=== PATIENT | female | born 1935 | race Caucasian/White ===

== ENCOUNTER 2016-09-17 06:41 | Emergency (ER) | payer MEDICARE, OTHER ==
--- NOTE | 2016-09-17 09:04 | RAD ---
HISTORY: Left flank pain COMPARISONS: None VIEWS: Frontal views of the abdomen. FINDINGS: BOWEL: There is a nonspecific bowel gas pattern. There is a distended loop of large bowel within the lower abdomen. CALCULI: There are calcified fibroids BONES AND SOFT TISSUES: Degenerative changes are noted OTHER FINDINGS: The lung bases are clear. There is no subphrenic gas. IMPRESSION: DISTENDED LOOP OF LARGE BOWEL FROM THE LOWER ABDOMEN. THIS MAY REPRESENT A CECAL BASCULE, THOUGH VOLVULUS IS WITHIN THE DIFFERENTIAL. RECOMMEND CONSIDERATION OF CORRELATION WITH CT.
[2016-09-17 09:49] LABS: Hematocrit 43 % (35-47); Hemoglobin 14.6 g/dl (12.0-16.0); Mean Corpuscular HGB Conc 34 g/dl (31-36); Mean Corpuscular Hemoglobin 32 pg (27-31); Mean Corpuscular Volume 94 fL (80-97); Mean Platelet Volume 8 um3 (7.4-10.4); Red Blood Count 4.59 10^6/ul (4.0-5.4); Red Cell Distribution Width 14 % (10.5-15); White Blood Count 8.2 10^3/ul (3.5-10.8)
[2016-09-17 10:13] LABS: Albumin 4.3 g/dL (3.2-5.2); BUN/Creatinine Ratio 23.1 (8-20); C Reactive Protein 3.21 mg/L (< 5.00); Calcium 9.3 mg/dL (8.6-10.3); EGFR African American 112.2 (>60); EGFR Non-African American 87.3 (>60); Globulin 2.5 g/dL (2-4); Potassium 3.7 mmol/L (3.5-5.0); Total Protein 6.8 g/dL (6.4-8.9)
[2016-09-17] MEDS ORDERED: Iohexol 300* (CONTRAST) 10 ML SDV IV ONE (11:29)
--- NOTE | 2016-09-17 12:38 | RAD ---
INDICATION: Lower abdominal pain COMPARISON: None TECHNIQUE: Axial source images were obtained from the hemidiaphragms to the symphysis pubis following administration of oral and intravenous contrast. 64 mL Omnipaque 300 was utilized. Coronal and sagittal reconstructed images were acquired. Lung bases: The lung bases are clear. There are mild emphysematous changes Liver: The liver is normal in size. There are no masses. There is no ductal dilatation. Gallbladder: There are no calcified gallstones. There is no evidence of wall thickening or pericholecystic fluid. Spleen: The spleen is normal in size. There are no masses. Pancreas: There is no focal pancreatic mass or ductal dilatation. Adrenal glands: There is no evidence of adrenal mass. Kidneys: The kidneys are normal in size and position. There are prompt nephrograms and there is prompt excretion bilaterally. There are no renal parenchymal masses. There is no evidence of nephrolithiasis. Adenopathy: There is no evidence of adenopathy by size criteria. Fluid collections: There are no free or localized fluid collections. Vessels:There are advanced atherosclerotic changes involving the aorta and iliac vessels. There is no focal aneurysm. The IVC appears normal. GI tract: There is apparent mural thickening of the stomach and the duodenum raising the possibility of gastritis/duodenitis. Consider upper endoscopy. The remaining upper GI tract is unremarkable. The colon is redundant and relatively featureless. The cecum is positioned in the right mid abdomen. There are extensive diverticula of the sigmoid colon. There is no obstruction. Pelvic organs: Fibroid uterus with calcified uterine leiomyoma. No adnexal mass. Bladder: There are no bladder masses. Abdominal and pelvic soft tissues: The extraperitoneal abdominal and pelvic soft tissues appear normal.. Osseous structures: There are no acute osseous findings. Other: None IMPRESSION: 1. Apparent thickening of the gastric mucosa and the duodenum. This could be related to a gastritis/duodenitis. Suggest upper endoscopy if indicated. 2. Colonic redundancy. Moderate diverticula of the sigmoid colon. No obstruction. 3. Calcified uterine leiomyoma
[2016-09-17 13:14] VITALS: BP 134/88
--- NOTE | 2016-09-17 18:04 | ED ---
Frederick Harper Billy, scribed for Mina Levine MD on 09/17/16 at 0740 . Abdominal Pain/Female - HPI Summary HPI Summary: Patient is an 81 year-old female coming to [facility] for evaluation of lower abdominal pain and constipation for the last 4 days. The pain is intermittent, and she states that her abdomen will occasionally swell and sound like a river. Nothing makes her pain better or worse. She is nauseated and has had a loss of appetite, but denies any vomiting. The patient normally has daily bowel movements every morning, although she has not had a significant bowel movement in 4 days. However, she had a golf ball-sized bowel movement that was hard and black this morning. - History of Current Complaint Chief Complaint: EDAbdPain Stated Complaint: CONSTIPATION/ABD PAIN Time Seen by Provider: 09/17/16 07:27 Hx Obtained From: Patient Onset/Duration: Gradual Onset, Lasting Days, Still Present Timing: Constant Severity Initially: Moderate Severity Currently: Moderate Location: Discrete At: RLQ, Discrete At: LLQ Radiates: No Aggravating Factor(s): Nothing Alleviating Factor(s): Nothing Associated Signs and Symptoms: Positive: Constipation, Decreased Appetite, Nausea. Negative: Vomiting Allergies/Adverse Reactions: Allergies Allergy/AdvReac Type Severity Reaction Status Date / Time No Known Allergies Allergy Verified 02/08/16 07:10 PMH/Surg Hx/FS Hx/Imm Hx Endocrine/Hematology History: Reports: Hx Anticoagulant Therapy - plavix Cardiovascular History: Reports: Hx Hypercholesterolemia Denies: Hx Hypertension History: Reports: Hx Renal Disease - mild renal dx - on losartan Musculoskeletal History: Denies: Hx Osteoporosis Neurological History: Reports: Hx Transient Ischemic Attacks (TIA) - Cancer History Hx Chemotherapy: No Hx Radiation Therapy: No - Surgical History Surgery Procedure, Year, and Place: bunions left foot, tonsillectomy Infectious Disease History: No Infectious Disease History: Denies: Traveled Outside the [place] in Last 30 Days - Family History Known Family History: Negative: Hypertension, Other - No cancer - Social History Alcohol Use: None Substance Use Type: Reports: None Smoking Status (MU): Former Smoker Review of Systems Negative: Fever Positive: Abdominal Pain, Nausea, Other - constipation, loss of appetite. Negative: Vomiting All Other Systems Reviewed And Are Negative: Yes Physical Exam Triage Information Reviewed: Yes Vital Signs On Initial Exam: Initial Vitals Temp Pulse Resp BP Pulse Ox 98.4 F 71 16 136/73 99 09/17/16 06:44 09/17/16 06:44 09/17/16 06:44 09/17/16 06:44 09/17/16 06:44 Vital Signs Reviewed: Yes Appearance: Positive: Well-Appearing, No Pain Distress Skin: Positive: Warm, Skin Color Reflects Adequate Perfusion, Dry Head/Face: Positive: Normal Head/Face Inspection Eyes: Positive: Normal ENT: Positive: Normal ENT inspection Neck: Positive: Supple, Nontender Respiratory/Lung Sounds: Positive: Clear to Auscultation, Breath Sounds Present Cardiovascular: Positive: RRR Abdomen Description: Positive: Nontender, Soft, Other: - No stool visualized in the vault on rectal exam. Bowel Sounds: Positive: Hyperactive Musculoskeletal: Positive: Normal Neurological: Positive: Normal, Sensory/Motor Intact, Alert, Oriented to Person Place, Time Psychiatric: Positive: Affect/Mood Appropriate Diagnostics - Vital Signs Vital Signs Temp Pulse Resp BP Pulse Ox 09/17/16 07:00 97.8 F 69 18 125/74 97 09/17/16 06:55 98.4 F 71 16 136/73 99 09/17/16 06:44 98.4 F 71 16 136/73 99 - Laboratory Lab Results: Lab Results 09/17/16 09/17/16 09/17/16 Range/Units 09:36 09:36 09:36 WBC 8.2 (3.5-10.8) 10^3/ul RBC 4.59 (4.0-5.4) 10^6/ul Hgb 14.6 (12.0-16.0) g/dl Hct 43 (35-47) % MCV 94 (80-97) fL MCH 32 H (27-31) pg MCHC 34 (31-36) g/dl RDW 14 (10.5-15) % Plt Count 268 (150-450) 10^3/ul MPV 8 (7.4-10.4) um3 Neut % (Auto) 71.1 (38-83) % Lymph % (Auto) 15.1 L (25-47) % Sunflower % (Auto) 13.4 H (1-9) % Eos % (Auto) 0.2 (0-6) % Baso % (Auto) 0.2 (0-2) % Absolute Neuts (auto) 5.8 (1.5-7.7) 10^3/ul Absolute Lymphs (auto) 1.2 (1.0-4.8) 10^3/ul Absolute Monos (auto) 1.1 H (0-0.8) 10^3/ul Absolute Eos (auto) 0 (0-0.6) 10^3/ul Absolute Basos (auto) 0 (0-0.2) 10^3/ul Absolute Nucleated RBC 0.01 10^3/ul Nucleated RBC % 0.1 Sodium 133 (133-145) mmol/L Potassium 3.7 (3.5-5.0) mmol/L Chloride 101 (101-111) mmol/L Carbon Dioxide 22 (22-32) mmol/L Anion Gap 10 (2-11) mmol/L BUN 15 (6-24) mg/dL Creatinine 0.65 (0.51-0.95) mg/dL Est GFR ( Amer) 112.2 (>60) Est GFR (Non-Af Amer) 87.3 (>60) BUN/Creatinine Ratio 23.1 H (8-20) Glucose 99 (70-100) mg/dL Lactic Acid 0.7 (0.5-2.0) mmol/L Calcium 9.3 (8.6-10.3) mg/dL Total Bilirubin 1.00 (0.2-1.0) mg/dL AST 16 (13-39) U/L ALT 16 (7-52) U/L Alkaline Phosphatase 64 (34-104) U/L C-Reactive Protein 3.21 (< 5.00) mg/L Total Protein 6.8 (6.4-8.9) g/dL Albumin 4.3 (3.2-5.2) g/dL Globulin 2.5 (2-4) g/dL Albumin/Globulin Ratio 1.7 (1-3) Lipase 14 (11.0-82.0) U/L Result Diagrams: 09/17/16 09:36 09/17/16 09:36 Lab Statement: Any lab studies that have been ordered have been reviewed, and results considered in the medical decision making process. - Radiology Abdomen x-ray Radiology Interpretation Completed By: Radiologist - DISTENDED LOOP OF LARGE BOWEL FROM THE LOWER ABDOMEN. THIS MAY REPRESENT A CECAL BASCULE, THOUGH VOLVULUS IS WITHIN THE DIFFERENTIAL. RECOMMEND CONSIDERATION OF CORRELATION WITH CT. - CT Abd/pel CT Interpretation Completed By: Radiologist - 1. Apparent thickening of the gastric mucosa and the duodenum. This could be related to a gastritis/ duodenitis. Suggest upper endoscopy if indicated. 2. Colonic redundancy. Moderate diverticula of the sigmoid colon. No obstruction. 3. Calcified uterine leiomyoma Re-Evaluation - Re-Evaluation First Eval Re-Evaluation Time: 09:12 Change: Unchanged Comment: Abomen x-ray results reviewed and discussed with the patient. Plan for further imaging and labs labs with the patient. She expressed an understanding and agrees with the plan. Second Eval Re-Evaluation Time: 12:58 Change: Improved Comment: Labs and CT imaging results reviewed. The patient states that she had four large, loose stools prior to CT imaging and felt much better afterwards. Abdominal Pain Fem Course/Dx - Course Course Of Treatment: Ms. Vital had an unusual appearance to her KUB but not particularily full of stool. A CT was obtained and just before getting it and after she had her contrast she had 4 episodes of 'explosive' diarrhea. She then felt completely back to normal. The CT did show some possible gastritis and i will refer her for further W/U. She has no symptoms of gastritis. - Diagnoses Provider Diagnoses: Abdominal pain Discharge - Discharge Plan Condition: Stable Disposition: HOME Patient Education Materials: Abdominal Pain (ED) Referrals: Nelly Clancy MD [Primary Care Provider] - Joshua Bee MD [Medical Doctor] - Additional Instructions: FOLLOW UP WITH DR. BEE (GASTROENTEROLOGY). The documentation as recorded by the Frederick starr Billy accurately reflects the service I personally performed and the decisions made by me, Mina Levine MD.
== END 2016-09-17 13:14 | disposition home or self-care (01) ==
LOC: ED 06:41
DX: R10.9 Unspecified abdominal pain (principal); K59.00 Constipation, unspecified
CPT/HCPCS: 36415; 74000; 74177; 80053; 83605; 83690; 85025; 86140; 99282; Q9967

== ENCOUNTER 2018-12-25 21:11 | Emergency (ER) | payer MEDICARE, OTHER ==
[2018-12-25] MEDS ORDERED: DOXYcycline CAP(*) 100 MG PO ONE (22:00)
--- NOTE | 2018-12-25 22:03 | ED ---
Skin Complaint - HPI Summary HPI Summary: 83-year-old female presents with cat scratch on left forearm three days ago. Patient is on Plavix. she has noticed increased swelling to the area. she has bruising to the area. Denies any fevers or chills. No lymphadenopathy. no redness to the area. - History of Current Complaint Chief Complaint: EDGeneral Time Seen by Provider: 12/25/18 21:35 Stated Complaint: CAT SCRATCH PER PT Pain Intensity: 4 - Allergy/Home Medications Allergies/Adverse Reactions: Allergies Allergy/AdvReac Type Severity Reaction Status Date / Time MS Penicillins [PCN] Allergy Unknown Verified 12/25/18 21:47 Reaction Details MS Sulfa Antibiotics Allergy Unknown Verified 12/25/18 21:47 [Sulfa Antibiotics] Reaction Details PMH/Surg Hx/FS Hx/Imm Hx Endocrine/Hematology History: Reports: Hx Anticoagulant Therapy - plavix Denies: Hx Diabetes Cardiovascular History: Reports: Hx Hypercholesterolemia Denies: Hx Hypertension History: Reports: Hx Renal Disease - mild renal dx - on losartan Musculoskeletal History: Denies: Hx Osteoporosis Neurological History: Reports: Hx Transient Ischemic Attacks (TIA) - Cancer History Hx Chemotherapy: No Hx Radiation Therapy: No - Surgical History Surgery Procedure, Year, and Place: bunions left foot, tonsillectomy Infectious Disease History: No Infectious Disease History: Denies: Traveled Outside the [place] in Last 30 Days - Family History Known Family History: Negative: Hypertension, Other - No cancer - Social History Alcohol Use: None Substance Use Type: Reports: None Smoking Status (MU): Former Smoker Review of Systems Negative: Fever Negative: Chest Pain Negative: Shortness Of Breath Positive: Rash All Other Systems Reviewed And Are Negative: Yes Physical Exam Triage Information Reviewed: Yes Vital Signs On Initial Exam: Initial Vitals Temp Pulse Resp BP Pulse Ox 99.6 F 66 16 186/96 95 12/25/18 21:13 12/25/18 21:13 12/25/18 21:13 12/25/18 21:13 12/25/18 21:13 Vital Signs Reviewed: Yes Appearance: Positive: Well-Appearing Skin: Positive: Warm, Dry, Other - 2 cat scratches on left forearm with surrounding ecchomysis, no warmth to area, no streaking, no lymphadenopathy present in axilla Head/Face: Positive: Normal Head/Face Inspection Eyes: Positive: Normal, Conjunctiva Clear ENT: Positive: Pharynx normal Respiratory/Lung Sounds: Positive: Clear to Auscultation, Breath Sounds Present Cardiovascular: Positive: Normal, RRR Musculoskeletal: Positive: Normal Neurological: Positive: Normal Psychiatric: Positive: Normal Diagnostics - Vital Signs Vital Signs Temp Pulse Resp BP Pulse Ox 12/25/18 21:13 99.6 F 66 16 186/96 95 - Laboratory Lab Statement: Any lab studies that have been ordered have been reviewed, and results considered in the medical decision making process. Course/Dx - Course Course Of Treatment: 83-year-old female presents with cat scratch on left forearm three days ago. Patient is on Plavix. she has noticed increased swelling to the area. she has bruising to the area. Denies any fevers or chills. No lymphadenopathy. no redness to the area. On exam has ecchymosis around a couple scratches on left forearm. no erythema or warmth to the area. Is not infected moment. Place on patient on prophylactic dose of doxycycline. Patient understands and agrees with plan. - Differential Diagnoses - Skin Complaint Differential Diagnoses: Abscess, Cellulitis, Other - hematoma - Diagnoses Provider Diagnoses: Cat scratch of left forearm, Ecchymosis Discharge - Sign-Out/Discharge Documenting (check all that apply): Patient Departure Patient Received Moderate/Deep Sedation with Procedure: No - Discharge Plan Condition: Good Disposition: HOME Prescriptions: DOXYcycline CAP(*) [DOXYcycline 100MG CAP(*)] 100 mg PO BID #9 cap Patient Education Materials: Ecchymosis (ED) Referrals: Nelly Clancy MD [Primary Care Provider] - Additional Instructions: apply ice Take doxycycline twice a day for 5 days, take with food, wear sunscreen clean area with soap and water Return to ED if develop any new redness of area, fever, or any new or worsening symptoms - Billing Disposition and Condition Condition: GOOD Disposition: Home
[2018-12-25 22:10] VITALS: BP 144/72
== END 2018-12-25 22:15 | disposition home or self-care (01) ==
LOC: ED 21:11
DX: S50.812A Abrasion of left forearm, initial encounter (principal); R58 Hemorrhage, not elsewhere classified; W55.03XA Scratched by cat, initial encounter; Y92.9 Unspecified place or not applicable; E78.00 Pure hypercholesterolemia, unspecified; Z79.01 Long term (current) use of anticoagulants; Z79.899 Other long term (current) drug therapy; Z88.0 Allergy status to penicillin; Z88.2 Allergy status to sulfonamides; Z87.891 Personal history of nicotine dependence
CPT/HCPCS: 99282; A9270-GY